=== PATIENT | male | born 1950 | race Caucasian/White ===

== ENCOUNTER 2019-04-30 13:33 | Emergency (ER) | payer MEDICARE, OTHER, SELFPAY ==
[2019-04-30 14:11] LABS: Basophils % 0.3 %; Eosinophils # 0.2 10^3/uL (0.0-0.8); Eosinophils % 1.7 %; Hematocrit 50.7 % (42.0-52.0); Hemoglobin 16.7 g/dL (11.7-16.6); Lymphocytes # 1.3 10^3/uL (0.8-4.8); Lymphocytes % 14.5 %; Mean Corpuscular HGB Conc 32.9 g/dL (30.0-36.0); Mean Corpuscular Hemoglobin 30.3 pg (28.0-34.0); Mean Platelet Volume 9.7 fL (7.4-10.4); Monocytes # 1.3 10^3/uL (0.2-0.9); Monocytes % 14.5 %; Neutrophils # 5.9 10^3/uL (1.8-7.7); Neutrophils % 68.4 %; Nucleated Red Blood Cells % 0 %; Platelet Count 256 10^3/cmm (130-400); Red Blood Count 5.51 10^6/uL (4.1-5.3); Red Cell Distribution Width 13.1 % (12.1-15.1); White Blood Count 8.7 10^3/uL (4.0-10.0)
[2019-04-30 14:28] LABS: Alanine Aminotransferase 35 U/L (0-41); Albumin Level 4.7 g/dL (3.5-5.2); Alkaline Phosphatase 90 IU/L (40-130); Anion Gap 15.1 (5-19); Aspartate Amino Transferase 21 U/L (0-40); Blood Urea Nitrogen 13 mg/dL (8-23); Calcium 9.8 mg/dL (8.5-10.5); Carbon Dioxide 29 mmol/L (22-29); Chloride 99 mmol/L (98-107); Globulin 3.2 g/dL (1.3-4.6); Glomerular Filtration Rate 96.1 mL/min (90-130); Glucose 114 mg/dL (74-106); Potassium 4.1 mmol/L (3.5-5.1); Sodium 139 mmol/L (136-145); Total Bilirubin 0.5 mg/dL (0.15-1.2); Total Protein 7.9 g/dL (6.6-8.7)
[2019-04-30 14:48] VITALS: BP 150/107; PULSE 82; RESP 20; TEMP 36.9; O2SAT 97; BMI 33.0
--- NOTE | 2019-04-30 18:07 | W.ED.GIBLEED ---
HPI - GI Bleed General: Chief complaint: GI Bleed Stated complaint: rectal bleeding Time Seen by Provider: 04/30/19 18:07 Source: patient and family Mode of arrival: ambulatory Limitations: no limitations History of Present Illness: HPI Narrative: Dinesh is a nice 68-year-old male who comes in complaining of bright red blood per rectum beginning at noon today. He said he just noticed something sticking in his pants and underpants and went to the bathroom and discovered the blood. It is been bright red in nature there is been no melena. He said he has some tenderness in his rectum the 2 days prior but denies any tenderness today. He is unaware if he has any hemorrhoids. He denies any abdominal pain, cramping, nausea or vomiting. He is not had a fever. He is unaware of anything that makes his symptoms better or worse. He denies having anything similar in the past. He denies being on any blood thinners except for Plavix which he takes for stroke. Denies any history of liver disease or any other anticoagulants. The patient denies any syncope or near syncopal type symptoms. Associated symptoms: Denies abdominal pain, chills, easy bruising, fever(s), headache(s), malaise, nausea, rash, syncope or vomiting Review of Systems General: Reports: other (negative unless marked) Const: Denies: fever, chills, body aches, fatigue, malaise or diaphoresis Eyes: Denies: change in vision or blurry vision ENMT: Denies: throat pain, painful swallowing, hoarseness, ear pain, ear discharge, Change in hearing or nasal discharge Card: Denies: chest pain, palpitations, irregular heart rhythm, syncope, pre-syncope, shortness of breath on exertion or shortness of breath when lying down Resp: Denies: shortness of breath, productive cough, non-productive cough, wheezing, coughing up blood or chest congestion GI: Reports: blood in stool; Denies: abdominal pain, nausea, vomiting, vomiting blood, coffee grounds in vomit, diarrhea, constipation, cramping or black tarry stool : Denies: flank pain, difficulty urinating, painful urination, urinary frequency, urinary urgency, decreased urine ouput, urinary incontinence or blood in urine Musc: Denies: neck pain, back pain, extremity pain, extremity swelling, joint pain, joint swelling, joint warmth or joint stiffness Skin/Breast: Denies: rash, skin tenderness or yellow skin Neuro: Denies: headache, numbness in extremities, weakness in extremities, changes in sensation, lack of coordination, difficulty walking, dizziness, vertigo or confusion Endo: Denies: excessive thirst, tired all the time, cold intolerance, excessive sweating, flushing or hot flashes Felipe/Lymph: Denies: easy bruising, easy bleeding, petechiae or enlarged lymph nodes All/Imm: Denies: hives, throat swelling, tongue swelling, facial swelling or acute wheezing PFSH ED PFSH: Statuses (acute, chronic, etc) shown below reflect problem list status as previously entered and may not be historically accurate Medical History BPH (benign prostatic hyperplasia) (Acute) CVA (cerebral vascular accident) (Acute) Hyperlipidemia (Acute) Hypertension (Acute) Surgical History (Updated 04/30/19 @ 18:43 by Jocelin Wyatt) Status post right hip replacement (Acute) Family History (Updated 04/30/19 @ 18:44 by Jocelin Wyatt) Other Adopted (not a blood relative) Social History Smoking and tobacco status: never smoked Physical Exam Const: COMMON NORMALS: no apparent distress, oriented x3, no limitations, healthy appearing and well nourished EXAM LIMITATIONS: no altered mental status GENERAL APPEARANCE: cooperative, well kempt and well developed ORIENTATION/CONSCIOUSNESS: Yes awake HENMT: COMMON NORMALS: normocephalic, head/scalp atraumatic, hearing grossly normal bilaterally, external ears normal, EAC's normal, external nose normal and moist oral mucous membranes HEAD & SCALP: normal to inspection, normocephalic and atraumatic FACE & SINUS: normal facial exam and face symmetric NOSE: external nose normal and nares normal EXTERNAL EAR: Yes external ears normal EXTERNAL AUDITORY CANAL: EAC's normal MOUTH: oral and palatal mucosa normal and tongue normal Eye: COMMON NORMALS: PERRL, EOMs intact bilaterally, conjunctivae normal and no scleral icterus GENERAL EYE: normal appearance of both eyes and normal light reflex CONJUNCTIVA: Yes conjunctivae normal SCLERA: sclerae normal CORNEA: Yes corneas normal PUPIL: Yes PERRL DIRECT OPHTHALMOSCOPY: Yes normal light reflex Neck/C-Spine: COMMON NORMALS: full ROM, no lymphadenopathy, supple, no meningeal signs and no JVD GENERAL: Yes normal visual inspection and Yes trachea midline CERVICAL SPINE: Yes cervical ROM normal Chest: COMMONS NORMALS: inspection of chest normal and palpation of chest normal Resp: COMMON NORMALS: normal respiratory effort, no retractions, no use of accessory muscles and clear to auscultation bilaterally EFFORT & INSPECTION: Yes able to speak in complete sentences AUSCULTATION: clear to auscultation bilaterally Cardio: COMMON NORMALS: no JVD, regular rate, regular rhythm, S1 normal heart sound, S2 normal heart sound, no gallops, no clicks, no murmurs and no rub JUGULAR VENOUS DISTENTION: no JVD RATE: regular rate RHYTHM: regular rhythm HEART SOUNDS: S1 normal and S2 normal GI: COMMON NORMALS: soft to palpation, non-tender, no hepatosplenomegaly and no masses INSPECTION: Yes normal to inspection PALPATION: Yes soft and Yes no hepatosplenomegaly RECTAL EXAM: Yes normal sphincter tone and Yes heme positive stool (Bright red blood) gross blood : COMMON NORMALS: Yes no CVA tenderness BLADDER/KIDNEY EXAM: Yes no CVA tenderness Back/Pelvis: COMMON NORMALS: no CVA tenderness, thoracic and lumbar spine normal to inspection, no thoracic nor lumbar tenderness and thoraco-lumbar ROM normal Extremity: COMMON NORMALS: normal to inspection, full ROM, normal capillary refill, no joint enlargement, no clubbing, cyanosis or edema and no calf tenderness Neuro: COMMON NORMALS: oriented x3, CN's II-XII intact bilaterally, moves all extremities, no focal motor deficits and no sensory deficits noted MENINGEAL SIGNS: Yes no meningeal signs Psych: COMMON NORMALS: mental status grossly normal, thought process normal, cooperative, affect normal, speech normal and activity/motor behavior normal APPEARANCE: Yes well kempt SPEECH: Yes normal speech THOUGHT PROCESS: normal thought process Skin: COMMON NORMALS: no rashes or lesions noted, skin turgor normal, no jaundice, no petechiae and no mottling GENERAL SKIN EXAM: no rashes or lesions noted and turgor normal Course ED course: Orthostatic vital signs -formal Vital Signs: Vital signs: Vital Signs Temperature 98.4 F 04/30/19 14:48 Pulse Rate 82 04/30/19 14:48 Respiratory Rate 20 H 04/30/19 14:48 Blood Pressure 150/107 04/30/19 14:48 Pulse Oximetry 94 04/30/19 18:31 MDM - GI Bleed MDM Narrative: Medical decision making narrative: Arrival -patient comes in with bright red rectal bleeding. Differential is considerable including hemorrhoid bleeding, internal hemorrhoid bleeding, diverticular being, cancer, AVM among others. Patient is stable with a high hemoglobin at this time. We will go ahead and add a CT scan to look for mass or diverticular bleeding. Patient is clinically stable and will not need resuscitation but will monitor him closely and order orthostatics. Discharge -patient comes in with rectal bleeding. There is no sign of external hemorrhoids although I do feel as though there may be an internal hemorrhoid present. He has not lost much blood less than a cup by estimation. His hemoglobin is high at 16.7 and he is not orthostatic. He has no abdominal pain or back pain. The patient is asking to go home and would rather do that than stay in the hospital. I reviewed the case in full with Dr. Freeman who states that based upon the patient's labs presentation he believes him safe for discharge. He can follow-up with him in the office and take Cipro and Flagyl in the interim. I reviewed this plan with the patient and he is in agreement. I believe the most likely cause at this time is proctitis. There is no sign of diverticular disease or mass. Further evaluations to evaluate for AVM and masses not seen by CT will be performed by colonoscopy by Dr. Freeman. Lab Data: Attestation: I reviewed the patient's lab results. Labs: Lab Results 04/30/19 04/30/19 04/30/19 Range/Units 14:03 14:03 14:03 WBC 8.7 (4.0-10.0) 10^3/ uL RBC 5.51 H (4.1-5.3) 10^6/u L Hgb 16.7 H (11.7-16.6) g/dL Hct 50.7 (42.0-52.0) % MCV 92.0 (80-94) fL MCH 30.3 (28.0-34.0) pg MCHC 32.9 (30.0-36.0) g/dL RDW 13.1 (12.1-15.1) % Plt Count 256 (130-400) 10^3/c mm MPV 9.7 (7.4-10.4) fL Neut % (Auto) 68.4 % Lymph % (Auto) 14.5 % Sharkey % (Auto) 14.5 % Eos % (Auto) 1.7 % Baso % (Auto) 0.3 % Neut # (Auto) 5.9 (1.8-7.7) 10^3/u L Lymph # (Auto) 1.3 (0.8-4.8) 10^3/u L Sharkey # (Auto) 1.3 H (0.2-0.9) 10^3/u L Eos # (Auto) 0.2 (0.0-0.8) 10^3/u L Baso # (Auto) 0.0 (0.0-0.1) 10^3/u L Nucleated RBC % (a uto) 0 % Nucleated RBCs # 0.0 /100WBC PT 13.50 H (10.5-13.3) SECO NDS INR 1.00 (0.8-1.2) Sodium 139 (136-145) mmol/L Potassium 4.1 (3.5-5.1) mmol/L Chloride 99 (98-107) mmol/L Carbon Dioxide 29 (22-29) mmol/L Anion Gap 15.1 (5-19) BUN 13 (8-23) mg/dL Creatinine 0.8 (0.7-1.2) mg/dL GFR Calculation 96.1 (90-130) mL/min Glucose 114 H (74-106) mg/dL Calcium 9.8 (8.5-10.5) mg/dL Total Bilirubin 0.5 (0.15-1.2) mg/dL AST 21 (0-40) U/L ALT 35 (0-41) U/L Alkaline Phosphata se 90 (40-130) IU/L Total Protein 7.9 (6.6-8.7) g/dL Albumin 4.7 (3.5-5.2) g/dL Globulin 3.2 (1.3-4.6) g/dL Imaging Data^: CT Abd/Pel: Radiologist's impression: [address] [address] [address] Scan Report Signed Patient: Dinesh Lamb Unit #: [id number] : 1950 Age/Sex: 68 / M ADM Date: 04/30/19 Loc: ER Room/Bed: Attending Dr: Ordering Provider/Ordering MD: Jocelin Wyatt DO Date of Service: 04/30/19 Procedure(s): CT abdomen pelvis w con* [id number] Accession Number(s): [id number] Report Number: [id number] PROCEDURE INFORMATION: Exam: CT Abdomen And Pelvis With Contrast Exam date and time: 04/30/2019 6:56 PM Age: 68 years old Clinical indication: Other: Rectal bleeding; Patient HX: PT states bright red blood seeping from rectum, says it stopped for a while, began again after rectal exam. ; Additional info: Abdominal pain TECHNIQUE: Imaging protocol: Computed tomography of the abdomen and pelvis with intravenous contrast. Total DLP: 1804.25 mGy-cm Radiation optimization: All CT scans at this facility use at least one of these dose optimization techniques: automated exposure control; mA and/or kV adjustment per patient size (includes targeted exams where dose is matched to clinical indication); or iterative reconstruction. Contrast material: OMNIPAQUE 300; Contrast volume: 95 ml; Contrast route: IV; COMPARISON: OT Hip 1v RIGHT wwo Pelvis [id number] 11/14/2017 9:18 PM FINDINGS: Lungs: Severe emphysematous changes are noted. There is basilar volume loss versus scarring. Liver: There is a diffuse decrease in hepatic parenchymal density, consistent with fatty infiltration. Few hepatic hypodensities are too small to characterize. There is a 2.0 cm fluid density cyst in the liver image 22. No duct dilatation. Gallbladder and bile ducts: Normal. No calcified stones. No ductal dilation. Pancreas: Normal. No ductal dilation. Spleen: Normal. No splenomegaly. Adrenals: Normal. No mass. Kidneys and ureters: Normal. No hydronephrosis. Stomach and bowel: The wall of the rectum appears thickened especially on the left image 94. It is partially obscured by some artifact from the right hip arthroplasty. This appearance may reflect lack of distension, eccentric wall thickening due to inflammatory change or mass. No additional focal wall thickening or mass is identified in the colon. There is a moderate to large amount of colonic stool. The loops of small bowel have an appropriate appearance. Appendix: A normal appendix is identified. Intraperitoneal space: Unremarkable. No free air. No significant fluid collection. Vasculature: Unremarkable.No abdominal aortic aneurysm. Lymph nodes: Unremarkable.No enlarged lymph nodes. Bladder: The bladder is partially obscured by arthroplasty artifact. Reproductive: The prostate demonstrates moderate nonspecific enlargement. The seminal vesicles are normal. The prostate demonstrates nonspecific parenchymal calcifications. Bones/joints: Multiple vacuum discs and moderate to severe diffuse degenerative changes in the spine are noted. No fracture or bony destructive lesion. Soft tissues: There is a fat-containing umbilical hernia. CT/CT abdomen pelvis w con* [id number] IMPRESSION: Asymmetric eccentric wall thickening of the rectum. Abundant colonic stool. No bowel thickening or inflammatory changes. Radiation Dose CTDIVOL = (mGy): DLP = 1804.25 (mGy-cm) Dictated By: Karina Sousa Signed By: Karina Sousa Signed Date/Time: 04/30/191925 DD/ 24 Discharge Plan Discharge Patient Disposition: Home, Self-Care Clinical Impression: GI (gastrointestinal bleed) Qualifiers: GI bleed type/associated pathology: anorectal hemorrhage Qualified Code(s): K62.5 - Hemorrhage of anus and rectum Condition: Stable Prescriptions: New Cipro 500 mg tablet 500 mg PO Q12H Qty: 20 RF: 0 Flagyl 500 mg tablet 500 mg PO Q8H Qty: 30 RF: 0 Discharge Orders: Discharge Order (Routine); Ordered 04/30/19 Ordered By: Jocelin Wyatt Referrals: Hitesh Freeman MD [Physician] - 1-3 days Layo Lyon MD [Primary Care Provider] - Patient Instructions: Gastrointestinal Bleeding (ED) Activity Restrictions/Additional Instructions: Please return to the ER immediately for any of the signs or symptoms listed on your discharge instruction sheets, worsening/changing of your symptoms, you are not getting better as quickly as expected, or for ANY other cause or concerns. You have been offered admission for observation for further evaluation and care of your rectal bleeding but have declined. If your symptoms change or worsen or you become sicker in any way please return to the ER immediately for recheck. Follow a clear liquid diet until the bleeding stops and then you can slowly advance your diet as tolerated. Hold your Plavix until your bleeding has subsided as well. Coding Level of Care Code ED [employer] [facility] Receiving Assistant for Cecily[facility] Fwd Exam Problem Focused
--- NOTE | 2019-04-30 18:19 | CTR_ITS ---
PROCEDURE INFORMATION: Exam: CT Abdomen And Pelvis With Contrast Exam date and time: 04/30/2019 6:56 PM Age: 68 years old Clinical indication: Other: Rectal bleeding; Patient HX: PT states bright red blood seeping from rectum, says it stopped for a while, began again after rectal exam. ; Additional info: Abdominal pain TECHNIQUE: Imaging protocol: Computed tomography of the abdomen and pelvis with intravenous contrast. Total DLP: 1804.25 mGy-cm Radiation optimization: All CT scans at this facility use at least one of these dose optimization techniques: automated exposure control; mA and/or kV adjustment per patient size (includes targeted exams where dose is matched to clinical indication); or iterative reconstruction. Contrast material: OMNIPAQUE 300; Contrast volume: 95 ml; Contrast route: IV; COMPARISON: OT Hip 1v RIGHT wwo Pelvis [id number] 11/14/2017 9:18 PM FINDINGS: Lungs: Severe emphysematous changes are noted. There is basilar volume loss versus scarring. Liver: There is a diffuse decrease in hepatic parenchymal density, consistent with fatty infiltration. Few hepatic hypodensities are too small to characterize. There is a 2.0 cm fluid density cyst in the liver image 22. No duct dilatation. Gallbladder and bile ducts: Normal. No calcified stones. No ductal dilation. Pancreas: Normal. No ductal dilation. Spleen: Normal. No splenomegaly. Adrenals: Normal. No mass. Kidneys and ureters: Normal. No hydronephrosis. Stomach and bowel: The wall of the rectum appears thickened especially on the left image 94. It is partially obscured by some artifact from the right hip arthroplasty. This appearance may reflect lack of distension, eccentric wall thickening due to inflammatory change or mass. No additional focal wall thickening or mass is identified in the colon. There is a moderate to large amount of colonic stool. The loops of small bowel have an appropriate appearance. Appendix: A normal appendix is identified. Intraperitoneal space: Unremarkable. No free air. No significant fluid collection. Vasculature: Unremarkable.No abdominal aortic aneurysm. Lymph nodes: Unremarkable.No enlarged lymph nodes. Bladder: The bladder is partially obscured by arthroplasty artifact. Reproductive: The prostate demonstrates moderate nonspecific enlargement. The seminal vesicles are normal. The prostate demonstrates nonspecific parenchymal calcifications. Bones/joints: Multiple vacuum discs and moderate to severe diffuse degenerative changes in the spine are noted. No fracture or bony destructive lesion. Soft tissues: There is a fat-containing umbilical hernia. CT/CT abdomen pelvis w con* [id number] IMPRESSION: Asymmetric eccentric wall thickening of the rectum. Abundant colonic stool. No bowel thickening or inflammatory changes. Radiation Dose CTDIVOL = (mGy): DLP = 1804.25 (mGy-cm)
[2019-04-30 18:31] VITALS: O2SAT 94
[2019-04-30] MEDS: sodium chloride 0.9% 1,000 ML 100 ML IV (18:34)
[2019-04-30] MEDS: iohexol 300 mg/mL 100 mL Btl IV (19:12)
[2019-04-30] MEDS: ciprofloxacin 500 mg Tablet PO (20:16)
[2019-04-30] MEDS: metroNIDAZOLE 500 MG Tablet PO (20:16)
[2019-04-30 20:38] VITALS: BP 127/96; PULSE 84; RESP 20; O2SAT 94
--- NOTE | 2019-05-01 14:25 | DCPLANNER ---
repertoire manager had message to schedule a follow up appointment for patient with [facility]. repertoire manager called the clinic, spoke with Kinsey, a follow up appointment is scheduled for Wednesday, May 08, 2019 at 1:00. repertoire manager called patient and informed patient of the scheduled appointment.
--- NOTE | 2019-05-25 15:28 | DCPLANNER ---
Patient did attend appointment scheduled for 05.08.19 with [facility].
== END 2019-04-30 20:28 | disposition home or self-care (01) ==
PROVIDERS: Emergency Medicine; Emergency Provider Emergency Medicine; Family Provider Family Medicine; PCP Family Medicine
DX: K62.5 Hemorrhage of anus and rectum (principal); Z86.73 Personal history of transient ischemic attack (TIA), and cerebral infarction without residual deficits; E78.5 Hyperlipidemia, unspecified; I10 Essential (primary) hypertension
CPT/HCPCS: 36415; 74177; 80053; 85025; 85610; 99282; J7030; Q9967

== ENCOUNTER 2019-05-16 05:57 | Day surgery (SDC) | payer MEDICARE, OTHER, SELFPAY ==
[2019-05-15 14:30] VITALS: BMI 33.3
[2019-05-16] VITALS (7 sets, daily range): BP systolic 93–126; BP diastolic 68–86; PULSE 81–99; RESP 16–22; TEMP 36.2–36.9; O2SAT 92–97
--- NOTE | 2019-05-16 06:35 | P.ANESASSM_ITS ---
Pre-Anesthetic Assessment Pre-Anesthetic Assessment: Height/Weight: Height 1.85 m Weight 114.759 kg Temp Pulse Resp BP Pulse Ox 98.4 F 90 18 126/84 95 05/16/19 06:20 05/16/19 06:20 05/16/19 06:20 05/16/19 06:20 05/16/19 06:20 Preop Diagnosis: rectal bleeding Proposed Procedure: Operation Date: 05/16/19 07:00 Proposed Procedures p Colonoscopy Poss Biopsy Poss polypectomy 98223/12165 K92.1(Not Applicable) - Hitesh Freeman MD s Poss Hemorroidectomy(Not Applicable) - Hitesh Freeman MD Last intake: Intake Last Liquid Date 05/15/19 Last Liquid Time 23:00 Last Solid Date 05/14/19 Last Solid Time 21:00 Exam: Pre-Anes Outpt Exam: alert, oriented x 3, clear to auscultation bilat erally and regular rate & rhythm Airway: Submandibular: WNL Cervical ROM: WNL MP: 2 CV/HEM: CV/HEM: HTN Comments: rx'd x 10y 2 blocks/2 FOS without angina/LEBRON : Comments: BPH Metabolic: Metabolic: Hyperlipidemia Neuropsych: Neuropsych: CVA Comments: '13 without deficit Anesthetic Plan: ASA status: 3 Anesthesia: MAC PFSH Anesthesia PFSH: Medical History (Updated 05/08/19 @ 17:09 by Hitesh Freeman MD) Anxiety BPH (benign prostatic hyperplasia) CVA (cerebral vascular accident) Hyperlipidemia Hypertension Surgical History (Updated 05/08/19 @ 16:05 by Hitesh Freeman MD) H/O arthroscopy left elbow H/O circumcision H/O colonoscopy 05/21/16 Hx of tonsillectomy Status post right hip replacement Social History Smoking and tobacco status: never smoked Alcohol intake: current Alcohol intake frequency: 0-2 Drinks per Day Household members: spouse Marital status: Current occupational status: retired History of recent travel: No Data Anesthesia Cardiac Studies: No Data to Display
[2019-05-16] MEDS: sodium chloride 0.9% 1,000 ML 30 ML IV (06:41)
--- NOTE | 2019-05-16 06:59 | PM.HPUD ---
H&P update H&P Update: DATE OF SURGERY/PROCEDURE: 05/16/19 DATE H&P PERFORMED: 05/08/19 H&P UPDATE INFORMATION: H&P completed within last 30 days and No changes to prior documentation PREOP DIAGNOSIS: rectal bleeding PLANNED PROCEDURE: Operation Date: 05/16/19 07:00 Proposed Procedures p Colonoscopy Poss Biopsy Poss polypectomy 01799/73397 K92.1(Not Applicable) - Hitesh Freeman MD s Poss Hemorroidectomy(Not Applicable) - Hitesh Freeman MD Full H&P Medications/Allergies: Current Medications: Current Medications Generic Name Dose Route Start Last Admin Trade Name Freq PRN Reason Stop Dose Admin Sodium Chloride 1,000 mls @ 30 ml s/hr 05/15/19 09:15 05/16/19 06:41 Sodium Chloride 0.9% IV 05/16/19 09:14 30 mls/hr .Q24H TED Administration Perinent History: Medical/Surgical History: Medical History (Updated 05/08/19 @ 17:09 by Hitesh Freeman MD) Anxiety BPH (benign prostatic hyperplasia) CVA (cerebral vascular accident) Hyperlipidemia Hypertension Family History: Family History (Updated 04/30/19 @ 18:44 by Jocelin Wyatt) Other Adopted (not a blood relative) Social History: Social History Smoking and tobacco status: never smoked Alcohol intake: current Alcohol intake frequency: 0-2 Drinks per Day Household members: spouse Marital status: Current occupational status: retired History of recent travel: No
--- NOTE | 2019-05-16 07:38 | P.OP_ITS ---
Operative Report Date of procedure: May 16, 2019 Pre-op Diagnosis: rectal bleeding Post-op Diagnosis: 1. 5 mm sessile polyp in the ascending colon removed with cold biopsy forceps 2. 5 mm sessile polyp in the hepatic flexure removed with cold biopsy forceps 3. Grade 1 internal hemorrhoids, no evidence of active bleeding Procedure Done: Colonoscopy with biopsy Specimens removed/disposition: 5 mm polyp from the ascending colon and hepatic flexure Surgeon: Hitesh Freeman Anesthesia: General Condition: stable Disposition: PACU Procedure: The colonoscopy was introduced and advanced up to the cecum with ileocecal valve and the appendical orifice was visualized. The colon prep was fair. The colonoscope was slowly withdrawn Cecum: Normal Ascending colon: 5 mm sessile polyp removed with cold biopsy forceps from the a scending colon, another 5 mm sessile polyp removed at the hepatic flexure with cold biopsy forceps Transverse colon: Normal Descending colon: Normal Sigmoid colon: Normal Rectum:: Grade 1 internal hemorrhoids, no evidence of bleeding EVA:: Grade 1 internal hemorrhoids
--- NOTE | 2019-05-16 07:39 | SUR.PHASEI ---
0739 oral airway removed.
--- NOTE | 2019-05-16 07:39 | SUR.PHASEI ---
0735 PATIENT TO PACU AT THIS TIME. ORAL AIRWAY IN PLACED, PLACED ON SIMPLE MASK AT 8L, SPO2 95%.
--- NOTE | 2019-05-16 07:58 | SUR.PHASEI ---
0753 PATIENT TO OPS AT THIS TIME. NO DISTRESS. DENIES PAIN.
== END 2019-05-16 08:35 | disposition home or self-care (01) ==
PROVIDERS: Family Provider Family Medicine; PCP Family Medicine; Visit Provider Surgery
PROC: 0DJD8ZZ Inspection of Lower Intestinal Tract, Via Natural or Artificial Opening Endoscopic (ICD-10-PCS; CPT 45378; principal; 2019-05-16 07:00)
DX: K62.5 Hemorrhage of anus and rectum (principal); K64.8 Other hemorrhoids; D12.3 Benign neoplasm of transverse colon; N40.0 Benign prostatic hyperplasia without lower urinary tract symptoms; Z86.73 Personal history of transient ischemic attack (TIA), and cerebral infarction without residual deficits; E78.5 Hyperlipidemia, unspecified; I10 Essential (primary) hypertension
CPT/HCPCS: 45380; 12345; 88305; J2001; J2405; J2704; J3010; J7030

== ENCOUNTER 2022-07-13 10:47 | Outpatient (CLI) | payer MEDICARE, OTHER, SELFPAY ==
--- NOTE | 2022-07-13 10:58 | USCV_ITS ---
Dinesh Lamb Age: 71 Gender: M : 1950 Exam Date: 07/13/2022 11:20 Ordering Phys: Layo Lyon MD Technologist: BRANDYN [place]am Location[place] [facility] [place]ication: [place] BP: 120 / 78 HR: 76 Rhythm: Sinus Technical Quality: Adequate MEASUREMENTS (Male / Female) Normal Values 2D ECHO LVOT Diameter 2.0 cm LV Ejection Fraction MOD 2C 62.3 % LV Ejection Fraction 2C AL 62.6 % LA Diameter 2.4 cm LA Width 2.5 cm LA Height 4.4 cm RA Width 3.4 cm RA Height 4.6 cm Aorta at Sinotubular Diameter 2.8 cm IVC Diameter 1.7 cm M-MODE Aortic Annulus Diameter 3.2 cm LA Ao Ratio MM 0.7 MV E Point Septal Separation 1.0 cm DOPPLER AV Peak Velocity 335.3 cm/s LVOT Peak Velocity 64.7 cm/s AV Area Cont Eq vti 0.8 cm squared AV Area Cont Eq pk 0.6 cm squared MV Peak Velocity 124.0 cm/s MV Area PHT 2.3 cm squared Mitral E to A Ratio 0.8 MV E' Velocity 50.5 cm/s Mitral E to MV E' Ratio 10.0 Mitral E to LV E' Lateral Ratio 7.4 Mitral E to LV E' Septal Ratio 15.7 TR Peak Velocity 184.6 cm/s TR Peak Gradient 13.6 mmHg TR Mean Velocity 153.7 cm/s TR Mean Gradient 9.7 mmHg TR Velocity Time Integral 57.6 cm TV Peak E Velocity 45.0 cm/s Right Atrial Pressure 3.0 mmHg Pulmonary Artery Systolic Pressu 16.6 mmHg PV Peak Velocity 152.0 cm/s FINDINGS Left Ventricle Left ventricle is normal in size. LV systolic function is normal with EF of 60 to 65%. No regional wall motion abnormalities are seen. Grade 1 diastolic dysfunction Right Ventricle The right ventricle is normal in size and function. Right Atrium The right atrium is normal in size. Left Atrium Dilated Mitral Valve Mild mitral annular calcification. Mild mitral regurgitation Aortic Valve Aortic valve is calcified and thickened. Moderate aortic stenosis with aortic valve area of 1.1 cm squared and mean gradient across aortic valve of 25 mmHg. Tricuspid Valve Mild tricuspid regurgitation. Pulmonary artery systolic pressure is normal. Pulmonic Valve Not well-visualized. Pericardium Normal pericardium without effusion. Aorta Normal ascending aorta dimension. IVC The inferior vena cava appears normal. CONCLUSIONS LV systolic function is normal with EF of 60-65% Grade 1 diastolic dysfunction Left atrium dilation Mild mitral regurgitation Moderate aortic stenosis Mild tricuspid regurgitation No comparison studies are available. Alfonso Marx MD (Electronically Signed) Final Date: 27 July 2022 20:10 S
== END 2022-07-13 10:48 | disposition home or self-care (01) ==
LOC: RAD 10:49
PROVIDERS: Family Provider Family Medicine; PCP Family Medicine; Visit Provider Family Medicine
DX: R01.1 Cardiac murmur, unspecified (principal)
CPT/HCPCS: 93306

== ENCOUNTER → 2024-03-05 13:41 | Outpatient (BNVA) | payer MEDICARE, OTHER, SELFPAY | PROVIDERS: PCP Family Medicine; Visit Provider Specialist | DX: M25.521 Pain in right elbow; M19.011 Primary osteoarthritis, right shoulder | CPT/HCPCS: 20610; 73080; 99203; J1100; J2795; J3301 ==